=== PATIENT | female | born 1995 | race Caucasian/White ===

== ENCOUNTER 2018-10-17 15:11 | Emergency (ER) | payer BC ==
[2018-10-17 15:24] VITALS: BP 114/76; BMI 25.6
[2018-10-17] MEDS ORDERED: ROBAXIN500 MG PO (17:04)
[2018-10-17] MEDS ORDERED: TORADOL10 MG PO (17:04)
== END 2018-10-17 17:35 | disposition home or self-care (01) ==
LOC: D.ER 15:11
DX: S50.11XA Contusion of right forearm, initial encounter (principal); V43.52XA Car driver injured in collision with other type car in traffic accident, initial encounter; Y93.89 Activity, other specified; Y92.410 Unspecified street and highway as the place of occurrence of the external cause; S50.811A Abrasion of right forearm, initial encounter; S16.1XXA Strain of muscle, fascia and tendon at neck level, initial encounter